=== PATIENT | male | born 1950 | race American Indian/Alaskan Native ===

== ENCOUNTER 2018-08-22 12:35 | Emergency (ER) | payer MEDICARE ==
--- NOTE | 2018-08-22 12:48 | Emergency Department Report ---
Blank Doc - Documentation Documentation: This is a 68-year-old male that presents with HTN. Patient stated he has been taking his medications and at home has normal b/p. Went to urgent care and was told has HTN. Denies any symptoms. Denies any headache. Denies any other complaints. This initial assessment/diagnostic orders/clinical plan/treatment(s) is/are subject to change based on patient's health status, clinical progression and re- assessment by fellow clinical providers in the ED. Further treatment and workup at subsequent clinical providers discretion. Patient/guardians urged not to elope from the ED as their condition may be serious if not clinically assessed and managed. Initial orders include: 1- Patient sent to [facility] for further evaluation and treatment
== END 2018-08-22 13:29 | disposition left against medical advice (07) ==
LOC: ED 12:35